=== PATIENT | female | born 1965 | race Caucasian/White ===

== ENCOUNTER 2017-03-19 19:25 | Inpatient (IN) | payer OTHER ==
[~2017-03-19] VITALS: Ht 165.1 cm; Wt 53.6 kg
[2017-03-19 20:22] LABS: microscopic required? NO
[2017-03-19 21:02] LABS: UA SPECIFIC GRAVITY <=1.005 (1.005-1.035); urine erythrocyte NEGATIVE (NEGATIVE)
[2017-03-19 21:09] LABS: BASOPHIL % 0.9 % (0-2); PLATELET COUNT 322 x10^3mcL (130-400)
[2017-03-19 21:23] LABS: ALKALINE PHOSPHATASE 194 U/L (46-116); ALT/SGPT 11 U/L (14-59); AMYLASE 41 U/L (25-115); AST/SGOT 24 U/L (15-37); BILIRUBIN TOTAL 0.37 mg/dL (0.20-1.00); CALCIUM 7.6 mg/dL (8.5-10.1); CARBON DIOXIDE 20.8 mmol/L (21-32); CHLORIDE SERUM 102 mmol/L (98-107); CREATININE SERUM 0.5 mg/dL (0.6-1.0); GFR1 > 60 mL/min; GLUCOSE SERUM 110 mg/dL (74-106); LIPASE 50 IU/L (73-393); POTASSIUM SERUM 3.5 mmol/L (3.5-5.1); SODIUM SERUM 136 mmol/L (136-145)
[2017-03-19 21:29] LABS: TOTAL PROTEIN, SERUM 5.8 g/dL (6.4-8.2)
[2017-03-19] MEDS ORDERED: OXYCODONE HYDRO15 MG PO (22:31)
[2017-03-19] MEDS ORDERED: MORPHINE SULFAT30 M2 PO (22:31)
[2017-03-19] MEDS ORDERED: KEPPRA XR500 M2 PO (22:32)
[2017-03-19] MEDS ORDERED: BACLOFEN10 MG PO (22:32)
[2017-03-19] MEDS ORDERED: AMITRIPTYLINE H50 MG PO (22:32)
[2017-03-19] MEDS ORDERED: COLACE100 MG PO (22:33)
[2017-03-19] MEDS ORDERED: REGLAN10 M1 PO (22:35)
[2017-03-19 23:11] VITALS: BP 118/74
[2017-03-20 00:10] VITALS: BP 109/73
[2017-03-20 01:09] LABS: T3 TOTAL 1.07 ng/mL
[2017-03-20 01:20] LABS: MAGNESIUM 1.7 mg/dL (1.8-2.4)
[2017-03-20 01:43] LABS: CHOLESTEROL/HDL RATIO 10.3
[2017-03-20 02:37] LABS: FREE T4 1.29 ng/dL (0.76-1.46); FREE THYROXINE INDEX 3.1 ug/dL (1.4-4.5); T4(THYROXINE) 8.2 ug/dL (4.7-13.3)
[2017-03-20 05:42] VITALS: BP 105/63
[2017-03-20 08:28] LABS: BASOPHIL % 0.5 % (0-2); CALCIUM 6.9 mg/dL (8.5-10.1); CHLORIDE SERUM 108 mmol/L (98-107); CREATININE SERUM 0.3 mg/dL (0.6-1.0); GFR1 > 60 mL/min; GLUCOSE SERUM 86 mg/dL (74-106); MAGNESIUM 1.5 mg/dL (1.8-2.4); PLATELET COUNT 219 x10^3mcL (130-400); SODIUM SERUM 139 mmol/L (136-145)
[2017-03-20 08:56] LABS: RED CELL DISTRIBUTION WIDTH 16.9 % (11.5-14.5); rbc morphology (normal/abnorm) ABNORMAL (NORMAL)
[2017-03-20 09:00] VITALS: BP 114/72
[2017-03-20 12:28] VITALS: BP 106/71
[2017-03-20 14:15] LABS: RED BLOOD CELLS 3.06 M/mm3 (4.10-5.10)
[2017-03-20 14:29] LABS: IRON 105 ug/dL (50-170)
[2017-03-20 14:34] LABS: TOTAL IRON BINDING CAPACITY 103 ug/dL (250-450)
[2017-03-20 16:27] VITALS: BP 100/69
[2017-03-20 21:26] VITALS: Ht 165.1 cm; Wt 53.6 kg
[2017-03-20 21:51] VITALS: BP 102/61
[2017-03-21 06:44] VITALS: BP 97/58
[2017-03-21 07:20] LABS: BASOPHIL % 1.4 % (0-2); PLATELET COUNT 231 x10^3mcL (130-400)
[2017-03-21 07:39] LABS: CALCIUM 7.1 mg/dL (8.5-10.1); CHLORIDE SERUM 111 mmol/L (98-107); CREATININE SERUM 0.3 mg/dL (0.6-1.0); GFR1 > 60 mL/min; GLUCOSE SERUM 87 mg/dL (74-106); PHOSPHOROUS 2.4 mg/dL (2.5-4.9); POTASSIUM SERUM 3.8 mmol/L (3.5-5.1); SODIUM SERUM 141 mmol/L (136-145)
[2017-03-21 08:41] LABS: RED CELL DISTRIBUTION WIDTH 16.6 % (11.5-14.5)
[2017-03-21 09:51] VITALS: BP 113/67
[2017-03-21 14:22] VITALS: BP 105/74
[2017-03-21 18:38] VITALS: BP 122/82
[2017-03-21 22:02] VITALS: BP 106/67
[2017-03-22 06:06] VITALS: BP 105/70
[2017-03-22 07:27] LABS: BASOPHIL % 0.4 % (0-2); PLATELET COUNT 237 x10^3mcL (130-400)
[2017-03-22 07:28] LABS: rbc morphology (normal/abnorm) ABNORMAL (NORMAL)
[2017-03-22 07:48] LABS: CALCIUM 7.4 mg/dL (8.5-10.1); CARBON DIOXIDE 22.5 mmol/L (21-32); CHLORIDE SERUM 116 mmol/L (98-107); CREATININE SERUM 0.4 mg/dL (0.6-1.0); GFR1 > 60 mL/min; GLUCOSE SERUM 85 mg/dL (74-106); MAGNESIUM 1.8 mg/dL (1.8-2.4); PHOSPHOROUS 2.1 mg/dL (2.5-4.9); POTASSIUM SERUM 3.4 mmol/L (3.5-5.1); SODIUM SERUM 148 mmol/L (136-145)
[2017-03-22 11:01] VITALS: BP 105/67
[2017-03-22] MEDS ORDERED: MEDDP PO (16:14)
[2017-03-22 16:31] VITALS: BP 105/67
== END 2017-03-22 17:02 | disposition home or self-care (01) | DRG 385 ==
LOC: ED 19:25 → DU 22:19 → MU 22:19 → DU 22:56 → MU 03-21 22:08
PROVIDERS: Emergency Medicine; Family Medicine; Family Medicine Sports Medicine; Internal Medicine Gastroenterology
PROC: 0DB78ZX Excision of Stomach, Pylorus, Via Natural or Artificial Opening Endoscopic, Diagnostic (ICD-10-PCS; principal; 2017-03-22 08:30)
PROC: 0DBB8ZX Excision of Ileum, Via Natural or Artificial Opening Endoscopic, Diagnostic (ICD-10-PCS; 2017-03-22 08:30)
DX: K50.00 Crohn's disease of small intestine without complications (principal); E43 Unspecified severe protein-calorie malnutrition; B37.89 Other sites of candidiasis; Z68.1 Body mass index [BMI] 19.9 or less, adult; E87.6 Hypokalemia; E83.51 Hypocalcemia; E83.42 Hypomagnesemia; D53.9 Nutritional anemia, unspecified; D52.9 Folate deficiency anemia, unspecified; K57.30 Diverticulosis of large intestine without perforation or abscess without bleeding; E83.39 Other disorders of phosphorus metabolism
CPT/HCPCS: 43235; 45378; 83880; 84439; 90658; J1200; J1610; J1885; J1956; J2250; J2310; J2405; J3010; J3475; J3490; J7030; J7040; J7512; Q0092; Q9967

== ENCOUNTER 2017-04-25 13:37 | Emergency (ER) | payer OTHER ==
[~2017-04-25 13:37] MED LIST: AMITRIPTYLINE H50 MG PO; BACLOFEN10 MG PO; COLACE100 MG PO; KEPPRA XR500 M2 PO; MEDDP PO; MORPHINE SULFAT30 M2 PO; OXYCODONE HYDRO15 MG PO; REGLAN10 M1 PO
[2017-04-25 15:31] LABS: BASOPHIL % 0.4 % (0-2); PLATELET COUNT 255 x10^3mcL (130-400)
[2017-04-25 15:33] LABS: RED CELL DISTRIBUTION WIDTH 16.6 % (11.5-14.5)
[2017-04-25 15:38] LABS: CALCIUM 8.4 mg/dL (8.5-10.1); CHLORIDE SERUM 104 mmol/L (98-107); CREATININE SERUM 0.4 mg/dL (0.6-1.0); GFR1 > 60 mL/min; GLUCOSE SERUM 108 mg/dL (74-106); POTASSIUM SERUM 3.4 mmol/L (3.5-5.1); SODIUM SERUM 141 mmol/L (136-145)
[2017-04-25 15:50] LABS: ALKALINE PHOSPHATASE 156 U/L (46-116); ALT/SGPT 26 U/L (14-59); AMYLASE 99 U/L (25-115); AST/SGOT 45 U/L (15-37); BILIRUBIN TOTAL 0.68 mg/dL (0.20-1.00); CHOLESTEROL 185 mg/dL (<200); HDL CHOLESTEROL 55 mg/dL (40-60); LIPASE 57 IU/L (73-393); T4(THYROXINE) 8.6 ug/dL (4.7-13.3)
[2017-04-25 15:52] LABS: ALBUMIN 2.4 g/dL (3.4-5.0); TOTAL PROTEIN, SERUM 6.1 g/dL (6.4-8.2)
[2017-04-25 16:28] LABS: UA SPECIFIC GRAVITY <=1.005 (1.005-1.035); microscopic required? YES; urine erythrocyte TRACE (NEGATIVE)
[2017-04-25 16:42] LABS: AMPHETAMINE QUAL UR NONE DETECTED (NEG <=1000)
[2017-04-25 17:32] VITALS: BP 100/62
== END 2017-04-25 17:32 | disposition home or self-care (01) ==
LOC: ED 13:37
PROVIDERS: Emergency Medicine
DX: F41.9 Anxiety disorder, unspecified (principal); R06.4 Hyperventilation; R60.9 Edema, unspecified; K50.90 Crohn's disease, unspecified, without complications; F17.210 Nicotine dependence, cigarettes, uncomplicated; Z88.0 Allergy status to penicillin; Z88.2 Allergy status to sulfonamides; Z96.641 Presence of right artificial hip joint
CPT/HCPCS: 36415; 83880; Q0092

== ENCOUNTER 2017-08-28 06:22 | Inpatient (IN) | payer OTHER ==
[~2017-08-28] VITALS: Ht 165.1 cm; Wt 49.9 kg
[2017-08-28 06:42] VITALS: Ht 165.1 cm; Wt 49.9 kg
[2017-08-28 07:41] LABS: BASOPHIL % 0.8 % (0-2); PLATELET COUNT 278 x10^3mcL (130-400)
[2017-08-28 07:42] LABS: RED CELL DISTRIBUTION WIDTH 19.6 % (11.5-14.5)
[2017-08-28 07:55] LABS: CALCIUM 7.4 mg/dL (8.5-10.1); CARBON DIOXIDE 21.2 mmol/L (21-32); CHLORIDE SERUM 102 mmol/L (98-107); CREATININE SERUM 0.4 mg/dL (0.6-1.0); GFR1 > 60 mL/min; GLUCOSE SERUM 107 mg/dL (74-106); POTASSIUM SERUM 3.9 mmol/L (3.5-5.1); SODIUM SERUM 137 mmol/L (136-145)
[2017-08-28 07:59] LABS: ALKALINE PHOSPHATASE 184 U/L (46-116); ALT/SGPT 33 U/L (14-59); AST/SGOT 38 U/L (15-37); BILIRUBIN TOTAL 1.65 mg/dL (0.20-1.00); LIPASE 21 IU/L (73-393)
[2017-08-28 08:02] LABS: ALBUMIN 1.6 g/dL (3.4-5.0); TOTAL PROTEIN, SERUM 4.9 g/dL (6.4-8.2)
[2017-08-28 08:16] LABS: microscopic required? NO
[2017-08-28 08:40] LABS: urine erythrocyte NEGATIVE (NEGATIVE)
[2017-08-28] MEDS ORDERED: AMITIZA24 MC1 PO (08:48)
[2017-08-28] MEDS ORDERED: PREDNISONE1 MG PO (08:48)
[2017-08-28] MEDS ORDERED: PROTONIX40 MG PO (08:49)
[2017-08-28 09:41] LABS: MAGNESIUM 1.7 mg/dL (1.8-2.4); PHOSPHOROUS 3.6 mg/dL (2.5-4.9)
[2017-08-28 09:48] LABS: T3 TOTAL 0.41 ng/mL
[2017-08-28 09:53] LABS: FREE T4 1.07 ng/dL (0.76-1.46)
[2017-08-28 09:54] LABS: FREE THYROXINE INDEX 1.3 ug/dL (1.4-4.5); T4(THYROXINE) 3.1 ug/dL (4.7-13.3)
[2017-08-28] MEDS ORDERED: AMITRIPTYLINE H50 MG PO (10:44)
[2017-08-28] MEDS ORDERED: OXYCODONE HYDRO15 MG PO (10:46)
[2017-08-28 11:33] VITALS: BP 103/67
[2017-08-28 16:36] LABS: AMPHETAMINE QUAL UR NONE DETECTED (NEG <=1000)
[2017-08-28 17:53] VITALS: BP 97/66
[2017-08-28 21:21] VITALS: BP 126/81
[2017-08-29 05:54] VITALS: BP 107/69
[2017-08-29 06:50] LABS: CALCIUM 6.6 mg/dL (8.5-10.1); CARBON DIOXIDE 20.3 mmol/L (21-32); CHLORIDE SERUM 107 mmol/L (98-107); CREATININE SERUM 0.4 mg/dL (0.6-1.0); GFR1 > 60 mL/min; GLUCOSE SERUM 73 mg/dL (74-106); MAGNESIUM 1.6 mg/dL (1.8-2.4); PHOSPHOROUS 2.8 mg/dL (2.5-4.9); POTASSIUM SERUM 3.5 mmol/L (3.5-5.1); SODIUM SERUM 139 mmol/L (136-145)
[2017-08-29 06:51] LABS: CHOLESTEROL 130 mg/dL (<200); CHOLESTEROL/HDL RATIO 16.3; HDL CHOLESTEROL 8 mg/dL (40-60); TRIGLYCERIDES 228 mg/dL (<150)
[2017-08-29 07:28] LABS: BASOPHIL % 0.6 % (0-2); PLATELET COUNT 219 x10^3mcL (130-400)
[2017-08-29 08:19] LABS: RED CELL DISTRIBUTION WIDTH 19.7 % (11.5-14.5)
[2017-08-29 09:20] VITALS: BP 102/67
[2017-08-29 11:57] VITALS: BP 149/54
[2017-08-29 17:22] VITALS: BP 102/70
[2017-08-29 21:59] VITALS: BP 104/76
[2017-08-30] VITALS (7 sets, daily range): BP systolic 101–128; BP diastolic 66–84
[2017-08-30 07:05] LABS: BASOPHIL % 0.6 % (0-2); PLATELET COUNT 244 x10^3mcL (130-400)
[2017-08-30 07:07] LABS: RED CELL DISTRIBUTION WIDTH 19.8 % (11.5-14.5)
[2017-08-30 07:12] LABS: CALCIUM 7.1 mg/dL (8.5-10.1); CARBON DIOXIDE 21.7 mmol/L (21-32); CHLORIDE SERUM 110 mmol/L (98-107); CREATININE SERUM 0.5 mg/dL (0.6-1.0); GFR1 > 60 mL/min; GLUCOSE SERUM 130 mg/dL (74-106); MAGNESIUM 2.2 mg/dL (1.8-2.4); PHOSPHOROUS 3.2 mg/dL (2.5-4.9); POTASSIUM SERUM 3.4 mmol/L (3.5-5.1); SODIUM SERUM 142 mmol/L (136-145)
[2017-08-31 05:42] VITALS: BP 114/75
[2017-08-31 06:18] LABS: CARBON DIOXIDE 20.1 mmol/L (21-32); CHLORIDE SERUM 110 mmol/L (98-107); CREATININE SERUM 0.5 mg/dL (0.6-1.0); GFR1 > 60 mL/min; GLUCOSE SERUM 143 mg/dL (74-106); MAGNESIUM 1.9 mg/dL (1.8-2.4); PHOSPHOROUS 3.1 mg/dL (2.5-4.9); POTASSIUM SERUM 3.3 mmol/L (3.5-5.1); SODIUM SERUM 142 mmol/L (136-145)
[2017-08-31 07:05] LABS: BASOPHIL % 0.2 % (0-2); PLATELET COUNT 204 x10^3mcL (130-400)
[2017-08-31 07:06] LABS: RED CELL DISTRIBUTION WIDTH 19.2 % (11.5-14.5)
[2017-08-31 10:39] VITALS: BP 113/73
[2017-08-31 17:39] LABS: CALCIUM 6.8 mg/dL (8.5-10.1); CHLORIDE SERUM 112 mmol/L (98-107); CREATININE SERUM 0.4 mg/dL (0.6-1.0); GFR1 > 60 mL/min; GLUCOSE SERUM 107 mg/dL (74-106); POTASSIUM SERUM 3.7 mmol/L (3.5-5.1); SODIUM SERUM 143 mmol/L (136-145)
[2017-08-31 18:06] VITALS: BP 110/77
[2017-08-31 21:14] VITALS: BP 107/56
[2017-09-01 05:35] VITALS: BP 124/92
[2017-09-01 06:31] LABS: BASOPHIL % 0.5 % (0-2); PLATELET COUNT 164 x10^3mcL (130-400)
[2017-09-01 06:44] LABS: CALCIUM 6.7 mg/dL (8.5-10.1); CARBON DIOXIDE 21.9 mmol/L (21-32); CHLORIDE SERUM 111 mmol/L (98-107); CREATININE SERUM 0.4 mg/dL (0.6-1.0); GFR1 > 60 mL/min; GLUCOSE SERUM 101 mg/dL (74-106); MAGNESIUM 1.6 mg/dL (1.8-2.4); PHOSPHOROUS 2.6 mg/dL (2.5-4.9); POTASSIUM SERUM 3.5 mmol/L (3.5-5.1); SODIUM SERUM 144 mmol/L (136-145)
[2017-09-01 10:27] VITALS: BP 103/69
[2017-09-01] MEDS ORDERED: CALCIUM 1,0001 EACH PO (14:10)
[2017-09-01] MEDS ORDERED: ROX5 PO (14:31)
[2017-09-01] MEDS ORDERED: MSC15 PO (14:32)
[2017-09-01 14:38] VITALS: BP 103/69
[2017-09-01 17:51] VITALS: BP 114/77
== END 2017-09-01 18:51 | DRG 441 ==
LOC: ED 06:22 → DU 09:22 → MU 09:22 → DU 10:27 → MU 08-30 09:31
PROVIDERS: Emergency Medicine; Family Medicine
PROC: 05HM33Z Insertion of Infusion Device into Right Internal Jugular Vein, Percutaneous Approach (ICD-10-PCS; principal; 2017-08-29)
PROC: B543ZZA Ultrasonography of Right Jugular Veins, Guidance (ICD-10-PCS; 2017-08-29)
PROC: 05HM33Z Insertion of Infusion Device into Right Internal Jugular Vein, Percutaneous Approach (ICD-10-PCS; 2017-08-30)
PROC: B543ZZA Ultrasonography of Right Jugular Veins, Guidance (ICD-10-PCS; 2017-08-30)
DX: K72.90 Hepatic failure, unspecified without coma (principal); E43 Unspecified severe protein-calorie malnutrition; K50.00 Crohn's disease of small intestine without complications; K83.0 Cholangitis; Z68.1 Body mass index [BMI] 19.9 or less, adult; M62.50 Muscle wasting and atrophy, not elsewhere classified, unspecified site; K74.60 Unspecified cirrhosis of liver; K59.03 Drug induced constipation; T40.2X5A Adverse effect of other opioids, initial encounter; F17.210 Nicotine dependence, cigarettes, uncomplicated; L89.152 Pressure ulcer of sacral region, stage 2; E83.42 Hypomagnesemia; E78.5 Hyperlipidemia, unspecified; E80.6 Other disorders of bilirubin metabolism; M48.061 Spinal stenosis, lumbar region without neurogenic claudication
CPT/HCPCS: 83880; 84439; 92610-GN; 97110-GP; 97116-GP; 97530-GP; J1642; J2001; J2060; J2405; J2916; J3475; J3480; J3490; J7030; J7131; J7512; Q0092; Q9967

== ENCOUNTER 2017-12-25 13:48 | Emergency (ER) | payer OTHER ==
[~2017-12-25] VITALS: Ht 165.1 cm; Wt 47.6 kg
[~2017-12-25 13:48] MED LIST changes: +AMITIZA24 MC1 PO; +CALCIUM 1,0001 EACH PO; +MSC15 PO; +PREDNISONE1 MG PO; +PROTONIX40 MG PO; +ROX5 PO
[2017-12-25 13:53] VITALS: Ht 165.1 cm; Wt 47.6 kg
[2017-12-25 16:32] VITALS: BP 114/81
== END 2017-12-25 16:15 | disposition home or self-care (01) ==
LOC: ED 13:48
DX: N12 Tubulo-interstitial nephritis, not specified as acute or chronic (principal); F17.210 Nicotine dependence, cigarettes, uncomplicated; Z88.0 Allergy status to penicillin; Z88.1 Allergy status to other antibiotic agents; Z98.82 Breast implant status; K50.90 Crohn's disease, unspecified, without complications
CPT/HCPCS: J2270

== ENCOUNTER 2018-02-05 13:57 | Emergency (ER) | payer OTHER ==
[~2018-02-05] VITALS: Ht 162.6 cm; Wt 44.5 kg
[2018-02-05 14:23] VITALS: BP 120/74; Ht 162.6 cm; Wt 44.5 kg
== END 2018-02-05 16:12 | disposition home or self-care (01) ==
LOC: ED 13:57
DX: Z46.6 Encounter for fitting and adjustment of urinary device (principal); Z88.0 Allergy status to penicillin; Z88.1 Allergy status to other antibiotic agents; Z88.2 Allergy status to sulfonamides; Z88.8 Allergy status to other drugs, medicaments and biological substances; Z98.890 Other specified postprocedural states

== ENCOUNTER 2019-09-06 09:57 | Inpatient (IN) | payer OTHER, SELFPAY ==
[~2019-09-06] VITALS: Ht 167.6 cm; Wt 40.2 kg
[2019-09-06 10:07] VITALS: Ht 167.6 cm; Wt 40.2 kg
[2019-09-06 10:36] LABS: PLATELET COUNT 315 x10^3mcL (130-400); RED CELL DISTRIBUTION WIDTH 21.3 % (11.5-14.5)
[2019-09-06 10:52] LABS: CALCIUM 6.1 mg/dL (8.5-10.1); CARBON DIOXIDE 19.4 mmol/L (21-32); CHLORIDE SERUM 114 mmol/L (98-107); CREATININE SERUM 0.6 mg/dL (0.6-1.0); GFR1 > 60 mL/min; GLUCOSE SERUM 121 mg/dL (74-106); POTASSIUM SERUM 3.1 mmol/L (3.5-5.1); SODIUM SERUM 145 mmol/L (136-145)
[2019-09-06 10:56] LABS: ALKALINE PHOSPHATASE 99 U/L (46-116); ALT/SGPT 6 U/L (14-59); AST/SGOT 22 U/L (15-37); BILIRUBIN TOTAL 0.42 mg/dL (0.20-1.00); TOTAL PROTEIN, SERUM 3.9 g/dL (6.4-8.2)
[2019-09-06 12:06] LABS: UA SPECIFIC GRAVITY 1.025 (1.005-1.035); microscopic required? YES; urine erythrocyte 1+ (NEGATIVE)
[2019-09-06 12:17] LABS: BAND NEUTROPHIL 2 % (0-10); MONOCYTE 10 % (0-7); SEGMENTED NEUTROPHILS 79 % (37-75); rbc morphology (normal/abnorm) ABNORMAL (NORMAL)
[2019-09-06 12:18] LABS: burr cell (echinocyte) 1+
[2019-09-06 14:41] VITALS: BP 136/66
[2019-09-06 18:27] VITALS: BP 125/73
[2019-09-06 23:35] VITALS: BP 97/62
[2019-09-07 03:15] VITALS: BP 99/60
[2019-09-07 04:58] LABS: PLATELET COUNT 380 x10^3mcL (130-400)
[2019-09-07 05:10] LABS: RED CELL DISTRIBUTION WIDTH 20.8 % (11.5-14.5)
[2019-09-07 05:13] LABS: CALCIUM 7.4 mg/dL (8.5-10.1); CARBON DIOXIDE 22.5 mmol/L (21-32); CHLORIDE SERUM 110 mmol/L (98-107); CREATININE SERUM 0.4 mg/dL (0.6-1.0); GFR1 > 60 mL/min; GLUCOSE SERUM 178 mg/dL (74-106); SODIUM SERUM 142 mmol/L (136-145)
[2019-09-07 05:24] LABS: POTASSIUM SERUM 2.8 mmol/L (3.5-5.1)
[2019-09-07 05:45] LABS: BAND NEUTROPHIL 6 % (0-10); MONOCYTE 9 % (0-7); SEGMENTED NEUTROPHILS 78 % (37-75); burr cell (echinocyte) 1+; rbc morphology (normal/abnorm) ABNORMAL (NORMAL)
[2019-09-07 07:30] VITALS: BP 92/58
[2019-09-07 11:30] VITALS: BP 88/56
[2019-09-07 16:00] VITALS: BP 89/54
[2019-09-07 19:30] VITALS: BP 108/63
[2019-09-07 23:35] VITALS: BP 102/59
[2019-09-08 03:10] VITALS: BP 95/59
[2019-09-08 06:52] LABS: PLATELET COUNT 359 x10^3mcL (130-400)
[2019-09-08 07:15] VITALS: BP 109/61
[2019-09-08 07:25] LABS: CALCIUM 7.2 mg/dL (8.5-10.1); CARBON DIOXIDE 18.2 mmol/L (21-32); CHLORIDE SERUM 108 mmol/L (98-107); CREATININE SERUM 0.4 mg/dL (0.6-1.0); GFR1 > 60 mL/min; GLUCOSE SERUM 108 mg/dL (74-106); POTASSIUM SERUM 3.4 mmol/L (3.5-5.1); SODIUM SERUM 138 mmol/L (136-145)
[2019-09-08 08:16] LABS: RED CELL DISTRIBUTION WIDTH 21.9 % (11.5-14.5)
[2019-09-08 11:20] VITALS: BP 88/53
[2019-09-08 12:30] LABS: BAND NEUTROPHIL 7 % (0-10); MONOCYTE 7 % (0-7); SEGMENTED NEUTROPHILS 74 % (37-75); rbc morphology (normal/abnorm) ABNORMAL (NORMAL)
[2019-09-08 12:31] LABS: PLATELET MORPHOLOGY PLATELETS NORMAL
[2019-09-08 16:00] VITALS: BP 93/51
[2019-09-08 20:00] VITALS: BP 89/55
[2019-09-08 23:00] VITALS: BP 105/60
[2019-09-09 03:04] VITALS: BP 96/55
[2019-09-09 07:01] LABS: PLATELET COUNT 329 x10^3mcL (130-400)
[2019-09-09 07:02] LABS: RED CELL DISTRIBUTION WIDTH 22.3 % (11.5-14.5)
[2019-09-09 07:45] LABS: CALCIUM 7.3 mg/dL (8.5-10.1); CARBON DIOXIDE 19.5 mmol/L (21-32); CHLORIDE SERUM 112 mmol/L (98-107); CREATININE SERUM 0.3 mg/dL (0.6-1.0); GFR1 > 60 mL/min; GLUCOSE SERUM 120 mg/dL (74-106); POTASSIUM SERUM 3.3 mmol/L (3.5-5.1); SODIUM SERUM 141 mmol/L (136-145)
[2019-09-09 11:34] LABS: MONOCYTE 6 % (0-7)
[2019-09-09 11:36] LABS: SEGMENTED NEUTROPHILS 69 % (37-75)
[2019-09-09 11:37] LABS: burr cell (echinocyte) 1+; rbc morphology (normal/abnorm) ABNORMAL (NORMAL)
[2019-09-09 22:07] VITALS: BP 95/60
[2019-09-10 06:04] VITALS: BP 102/47
[2019-09-10 07:18] LABS: CALCIUM 7.1 mg/dL (8.5-10.1); CARBON DIOXIDE 22.2 mmol/L (21-32); CHLORIDE SERUM 111 mmol/L (98-107); CREATININE SERUM 0.4 mg/dL (0.6-1.0); GFR1 > 60 mL/min; GLUCOSE SERUM 89 mg/dL (74-106); SODIUM SERUM 143 mmol/L (136-145)
[2019-09-10 07:28] LABS: BASOPHIL % 0.6 % (0-2); PLATELET COUNT 314 x10^3mcL (130-400)
[2019-09-10 07:32] LABS: POTASSIUM SERUM 2.4 mmol/L (3.5-5.1)
[2019-09-10 07:55] LABS: RED CELL DISTRIBUTION WIDTH 21.6 % (11.5-14.5)
[2019-09-10 08:20] VITALS: BP 83/42
[2019-09-10 10:13] LABS: ovalocyte/elliptocyte 1+; rbc morphology (normal/abnorm) ABNORMAL (NORMAL)
[2019-09-10 12:51] VITALS: BP 81/53
[2019-09-10 13:10] VITALS: BP 81/53
[2019-09-10 17:15] VITALS: BP 82/46
[2019-09-10 20:35] VITALS: BP 90/57
[2019-09-11 05:35] VITALS: BP 91/55
[2019-09-11 07:01] LABS: PLATELET COUNT 338 x10^3mcL (130-400)
[2019-09-11 07:08] LABS: BASOPHIL % 0 % (0-2); RED CELL DISTRIBUTION WIDTH 21.6 % (11.5-14.5)
[2019-09-11 07:44] LABS: CALCIUM 7.3 mg/dL (8.5-10.1); CARBON DIOXIDE 21.2 mmol/L (21-32); CHLORIDE SERUM 113 mmol/L (98-107); CREATININE SERUM 0.6 mg/dL (0.6-1.0); GFR1 > 60 mL/min; GLUCOSE SERUM 125 mg/dL (74-106); POTASSIUM SERUM 3.9 mmol/L (3.5-5.1); SODIUM SERUM 145 mmol/L (136-145)
[2019-09-11 08:43] VITALS: BP 84/52
[2019-09-11 13:30] VITALS: BP 88/50
[2019-09-11 16:29] VITALS: BP 88/50
[2019-09-11 18:01] VITALS: BP 116/68
[2019-09-12 04:35] VITALS: BP 99/62
[2019-09-12 07:16] LABS: CALCIUM 6.9 mg/dL (8.5-10.1); CARBON DIOXIDE 20.8 mmol/L (21-32); CHLORIDE SERUM 110 mmol/L (98-107); CREATININE SERUM 0.6 mg/dL (0.6-1.0); GFR1 > 60 mL/min; GLUCOSE SERUM 160 mg/dL (74-106); SODIUM SERUM 141 mmol/L (136-145)
[2019-09-12 08:11] LABS: BASOPHIL % 0.1 % (0-2); PLATELET COUNT 302 x10^3mcL (130-400)
[2019-09-12 08:24] LABS: RED CELL DISTRIBUTION WIDTH 22.7 % (11.5-14.5)
[2019-09-12 08:46] VITALS: BP 101/61
== END 2019-09-12 12:41 | disposition short-term general hospital (02) | DRG 871 ==
LOC: ED 09:57 → IC 12:00 → DU 09-09 19:45
PROVIDERS: Emergency Medicine; ADMIT Internal Medicine; ATTEND Internal Medicine
PROC: 06JYXZZ Inspection of Lower Vein, External Approach (ICD-10-PCS; principal; 2019-09-06)
DX: A41.9 Sepsis, unspecified organism (principal); R65.21 Severe sepsis with septic shock; G93.41 Metabolic encephalopathy; J96.01 Acute respiratory failure with hypoxia; J18.9 Pneumonia, unspecified organism; K50.90 Crohn's disease, unspecified, without complications; E27.1 Primary adrenocortical insufficiency; F11.20 Opioid dependence, uncomplicated; R64 Cachexia; Z68.1 Body mass index [BMI] 19.9 or less, adult; Z86.19 Personal history of other infectious and parasitic diseases; Z20.828 Contact with and (suspected) exposure to other viral communicable diseases; Z88.0 Allergy status to penicillin; Z88.2 Allergy status to sulfonamides; Z91.048 Other nonmedicinal substance allergy status; E87.6 Hypokalemia; R73.9 Hyperglycemia, unspecified; D64.9 Anemia, unspecified; K52.9 Noninfective gastroenteritis and colitis, unspecified; G40.909 Epilepsy, unspecified, not intractable, without status epilepticus; K72.90 Hepatic failure, unspecified without coma; G89.4 Chronic pain syndrome
CPT/HCPCS: 82962; 97110-GP; C9113; G0378; J1650; J1720; J1815; J1956; J2001; J2185; J2270; J3370; J3480; J3490; J7040; J7042; J7050; J7131; J8597; Q0092; U0003-CS